=== PATIENT | female | born 1995 | race Caucasian/White ===

== ENCOUNTER 2020-11-12 13:27 | Emergency (ER) | payer OTHER ==
[~2020-11-12] VITALS: Ht 165.1 cm; Wt 65.8 kg
[~2020-11-12 13:27] MED LIST: PRENATAL TABLE1 EAC1 PO
== END 2020-11-12 20:51 | disposition home or self-care (01) ==
LOC: ER 13:27
DX: M62.82 Rhabdomyolysis (principal)